=== PATIENT | female | born 1980 | race Caucasian/White ===

== ENCOUNTER 2016-07-24 16:54 | Emergency (ER) | payer OTHER ==
[~2016-07-24] VITALS: Ht 165.1 cm; Wt 129.7 kg
[2016-07-24 17:58] LABS: BASOPHIL % 0.4 % (0-2); PLATELET COUNT 304 x10^3mcL (130-400)
[2016-07-24 18:11] LABS: CALCIUM 8.6 mg/dL (8.5-10.1); CARBON DIOXIDE 28.8 mmol/L (21-32); CHLORIDE SERUM 107 mmol/L (98-107); CREATININE SERUM 0.8 mg/dL (0.6-1.0); GFR1 > 60 mL/min; GLUCOSE SERUM 108 mg/dL (74-106); SODIUM SERUM 142 mmol/L (136-145)
[2016-07-24 18:16] LABS: ALKALINE PHOSPHATASE 61 U/L (46-116); ALT/SGPT 40 U/L (14-59); AST/SGOT 29 U/L (15-37); BILIRUBIN TOTAL 0.58 mg/dL (0.20-1.00); TOTAL PROTEIN, SERUM 6.8 g/dL (6.4-8.2)
[2016-07-24 18:18] LABS: ALBUMIN 3.2 g/dL (3.4-5.0)
[2016-07-24 18:59] LABS: AMPHETAMINE QUAL UR NONE DETECTED (NEG <=1000)
[2016-07-24 20:31] VITALS: BP 128/66
== END 2016-07-24 20:31 | disposition home or self-care (01) ==
LOC: ED 16:54
PROVIDERS: Emergency Medicine
DX: R07.89 Other chest pain (principal); R51 Headache; E28.2 Polycystic ovarian syndrome; R20.2 Paresthesia of skin; Z79.84 Long term (current) use of oral hypoglycemic drugs
CPT/HCPCS: 83880; J1885; J7030

== ENCOUNTER 2017-05-06 06:05 | Emergency (ER) | payer OTHER ==
[~2017-05-06] VITALS: Ht 165.1 cm; Wt 112.9 kg
[2017-05-06 06:14] VITALS: Ht 165.1 cm; Wt 112.9 kg
[2017-05-06 07:49] LABS: microscopic required? NO
[2017-05-06 07:58] LABS: UA SPECIFIC GRAVITY 1.025 (1.005-1.035); urine erythrocyte NEGATIVE (NEGATIVE)
[2017-05-06 09:22] VITALS: BP 140/82
== END 2017-05-06 10:22 | disposition left against medical advice (07) ==
LOC: ED 06:05
PROVIDERS: Emergency Medicine
DX: R10.32 Left lower quadrant pain (principal); I10 Essential (primary) hypertension; E11.9 Type 2 diabetes mellitus without complications
CPT/HCPCS: Q0092

== ENCOUNTER 2017-06-02 17:34 | Inpatient (IN) | payer OTHER ==
[~2017-06-02] VITALS: Ht 165.1 cm; Wt 125.6 kg
[2017-06-02 19:53] LABS: BASOPHIL % 0.2 % (0-2); PLATELET COUNT 386 x10^3mcL (130-400); RED CELL DISTRIBUTION WIDTH 14.2 % (11.5-14.5)
[2017-06-02 19:54] LABS: UA SPECIFIC GRAVITY 1.015 (1.005-1.035); microscopic required? YES; urine erythrocyte NEGATIVE (NEGATIVE)
[2017-06-02 20:00] LABS: CALCIUM 8.5 mg/dL (8.5-10.1); CARBON DIOXIDE 27.6 mmol/L (21-32); CHLORIDE SERUM 100 mmol/L (98-107); CREATININE SERUM 0.6 mg/dL (0.6-1.0); GFR1 > 60 mL/min; GLUCOSE SERUM 78 mg/dL (74-106); POTASSIUM SERUM 3.7 mmol/L (3.5-5.1); SODIUM SERUM 135 mmol/L (136-145)
[2017-06-02 20:05] LABS: ALBUMIN 3.1 g/dL (3.4-5.0); ALKALINE PHOSPHATASE 54 U/L (46-116); ALT/SGPT 27 U/L (14-59); AMYLASE 46 U/L (25-115); AST/SGOT 24 U/L (15-37); BILIRUBIN TOTAL 0.8 mg/dL (0.20-1.00); LIPASE 97 IU/L (73-393)
[2017-06-02 20:19] LABS: AMPHETAMINE QUAL UR NONE DETECTED (NEG <=1000)
[2017-06-03 02:00] LABS: CHOLESTEROL/HDL RATIO 4.4; PHOSPHOROUS 3.5 mg/dL (2.5-4.9)
[2017-06-03 02:11] VITALS: BP 129/85
[2017-06-03 02:18] LABS: FREE T4 1.19 ng/dL (0.76-1.46); FREE THYROXINE INDEX 2.8 ug/dL (1.4-4.5); T4(THYROXINE) 8.9 ug/dL (4.7-13.3)
[2017-06-03 05:29] VITALS: BP 114/68
[2017-06-03 06:55] LABS: BASOPHIL % 0.3 % (0-2); PLATELET COUNT 331 x10^3mcL (130-400)
[2017-06-03 07:00] LABS: CALCIUM 8.2 mg/dL (8.5-10.1); CARBON DIOXIDE 25.7 mmol/L (21-32); CHLORIDE SERUM 103 mmol/L (98-107); CREATININE SERUM 0.6 mg/dL (0.6-1.0); GFR1 > 60 mL/min; GLUCOSE SERUM 85 mg/dL (74-106); POTASSIUM SERUM 3.5 mmol/L (3.5-5.1); SODIUM SERUM 131 mmol/L (136-145)
[2017-06-03 09:36] VITALS: BP 135/73
[2017-06-03 09:57] VITALS: Ht 165.1 cm; Wt 125.6 kg
[2017-06-03] MEDS ORDERED: LEVAQUIN750 MG PO (10:25)
[2017-06-03] MEDS ORDERED: FLAGYL500 MG PO (10:26)
[2017-06-03] MEDS ORDERED: LAC PO (10:26)
[2017-06-03 11:22] VITALS: BP 135/73
== END 2017-06-03 11:40 | disposition home or self-care (01) | DRG 757 ==
LOC: ED 17:34 → DU 23:51
PROVIDERS: Emergency Medicine; Family Medicine Sports Medicine
DX: N70.93 Salpingitis and oophoritis, unspecified (principal); N17.0 Acute kidney failure with tubular necrosis; N39.0 Urinary tract infection, site not specified; E87.1 Hypo-osmolality and hyponatremia; E44.0 Moderate protein-calorie malnutrition; Z68.42 Body mass index [BMI] 45.0-49.9, adult; E28.2 Polycystic ovarian syndrome; I10 Essential (primary) hypertension; D64.9 Anemia, unspecified; E66.01 Morbid (severe) obesity due to excess calories
CPT/HCPCS: 83880; 84439; J0694; J0696; J1885; J3490; J7030; J7040; Q9967

== ENCOUNTER 2017-07-20 11:27 | Emergency (ER) | payer OTHER ==
[~2017-07-20] VITALS: Ht 165.1 cm; Wt 126.1 kg
[~2017-07-20 11:27] MED LIST: FLAGYL500 MG PO; LAC PO; LEVAQUIN750 MG PO
[2017-07-20 11:42] VITALS: Ht 165.1 cm; Wt 126.1 kg
[2017-07-20 12:38] VITALS: BP 134/94
== END 2017-07-20 12:45 | disposition home or self-care (01) ==
LOC: ED 11:27
DX: R07.89 Other chest pain (principal); I10 Essential (primary) hypertension
CPT/HCPCS: J1885